=== PATIENT | male | born 1975 | race Caucasian/White ===

== ENCOUNTER 2016-11-25 21:09 | Emergency (ER) | payer OTHER ==
[~2016-11-25] VITALS: Ht 175.2 cm; Wt 90.7 kg
== END 2016-11-25 23:10 | disposition home or self-care (01) ==
LOC: ED 21:09
DX: S61.412A Laceration without foreign body of left hand, initial encounter (principal); F17.200 Nicotine dependence, unspecified, uncomplicated; W29.8XXA Contact with other powered hand tools and household machinery, initial encounter; Y93.89 Activity, other specified; Y92.009 Unspecified place in unspecified non-institutional (private) residence as the place of occurrence of the external cause; Y99.9 Unspecified external cause status

== ENCOUNTER 2016-12-05 12:39 | Emergency (ER) | payer OTHER ==
[~2016-12-05] VITALS: Wt 90.7 kg
== END 2016-12-05 13:03 | disposition home or self-care (01) ==
LOC: ED 12:39
DX: Z48.02 Encounter for removal of sutures (principal); I10 Essential (primary) hypertension

== ENCOUNTER 2016-12-07 12:46 | Emergency (ER) | payer OTHER ==
[~2016-12-07] VITALS: Ht 172.7 cm; Wt 88.5 kg
== END 2016-12-07 13:30 | disposition home or self-care (01) ==
LOC: ED 12:46
DX: T81.30XA Disruption of wound, unspecified, initial encounter (principal); F17.200 Nicotine dependence, unspecified, uncomplicated; Y92.9 Unspecified place or not applicable

== ENCOUNTER 2018-07-22 19:39 | Emergency (ER) | payer OTHER ==
[~2018-07-22] VITALS: Ht 172.7 cm; Wt 86.2 kg
[2018-07-22] MEDS ORDERED: CLINDAMYCIN HC300 MG PO (20:08)
[2018-07-30] MEDS ORDERED: NITROSTAT0.4 MG SL (13:22)
== END 2018-07-22 20:18 | disposition home or self-care (01) ==
LOC: ED 19:39
DX: S91.332A Puncture wound without foreign body, left foot, initial encounter (principal); L03.032 Cellulitis of left toe; W45.0XXA Nail entering through skin, initial encounter; Y93.89 Activity, other specified; Y92.89 Other specified places as the place of occurrence of the external cause; Y99.8 Other external cause status

== ENCOUNTER 2018-07-24 22:55 | Emergency (ER) | payer OTHER ==
[~2018-07-24] VITALS: Ht 172.7 cm; Wt 86.2 kg
[~2018-07-24 22:55] MED LIST: CLINDAMYCIN HC300 MG PO
[2018-07-24] MEDS ORDERED: EFFEXOR XR150 M1 PO (23:07)
[2018-07-24] MEDS ORDERED: IBUPROFEN600 MG PO (23:55)
[2018-07-24] MEDS ORDERED: CIPRO500 MG PO (23:55)
[2018-07-30] MEDS ORDERED: NITROSTAT0.4 MG SL (13:22)
== END 2018-07-25 00:22 | disposition home or self-care (01) ==
LOC: ED 22:55
DX: S91.332A Puncture wound without foreign body, left foot, initial encounter (principal); L02.612 Cutaneous abscess of left foot; Z79.2 Long term (current) use of antibiotics; Z79.899 Other long term (current) drug therapy; W22.8XXA Striking against or struck by other objects, initial encounter; Y93.89 Activity, other specified; Y92.89 Other specified places as the place of occurrence of the external cause; Y99.8 Other external cause status

== ENCOUNTER → 2018-07-30 | Outpatient (CLI) | payer OTHER ==
[~2018-07-30] MED LIST changes: +CIPRO500 MG PO; +EFFEXOR XR150 M1 PO; +IBUPROFEN600 MG PO; +NITROSTAT0.4 MG SL
== END | disposition home or self-care (01) ==
LOC: WOUNDCARE 13:27
DX: T81.89XA Other complications of procedures, not elsewhere classified, initial encounter (principal); L02.612 Cutaneous abscess of left foot; F17.200 Nicotine dependence, unspecified, uncomplicated; Y83.8 Other surgical procedures as the cause of abnormal reaction of the patient, or of later complication, without mention of misadventure at the time of the procedure; Y92.89 Other specified places as the place of occurrence of the external cause

== ENCOUNTER 2020-10-03 15:49 | Emergency (ER) | payer OTHER ==
[~2020-10-03] VITALS: Ht 172.7 cm
[2020-10-03] MEDS ORDERED: PREDNISONE50 MG PO (17:58)
== END 2020-10-03 17:56 | disposition home or self-care (01) ==
LOC: ED 15:49
DX: T63.441A Toxic effect of venom of bees, accidental (unintentional), initial encounter (principal); F17.200 Nicotine dependence, unspecified, uncomplicated; Z79.899 Other long term (current) drug therapy; Y92.89 Other specified places as the place of occurrence of the external cause

== ENCOUNTER 2021-05-15 11:52 | Emergency (ER) | payer OTHER ==
[~2021-05-15] VITALS: Ht 172.7 cm; Wt 86.2 kg
[~2021-05-15 11:52] MED LIST changes: +PREDNISONE50 MG PO
[2021-05-15] MEDS ORDERED: CYCLOBENZAPRINE5 M3 PO (14:59)
[2021-05-15] MEDS ORDERED: Motrin,Rufen800 MG PO (14:59)
[2021-05-15] MEDS ORDERED: MEDROL DOSEPAK4 MG PO (14:59)
== END 2021-05-15 15:03 | disposition home or self-care (01) ==
LOC: ED 11:52
DX: M54.12 Radiculopathy, cervical region (principal); M25.511 Pain in right shoulder; Z79.899 Other long term (current) drug therapy

== ENCOUNTER → 2021-06-08 | Outpatient (CLI) | payer OTHER ==
[~2021-06-08] MED LIST changes: +CYCLOBENZAPRINE5 M3 PO; +MEDROL DOSEPAK4 MG PO; +Motrin,Rufen800 MG PO
== END | disposition home or self-care (01) ==
LOC: MRI 13:00
PROVIDERS: ATTEND Family Medicine
DX: M47.22 Other spondylosis with radiculopathy, cervical region (principal); M48.02 Spinal stenosis, cervical region; M50.10 Cervical disc disorder with radiculopathy, unspecified cervical region

== ENCOUNTER 2022-12-05 22:44 | Emergency (ER) | payer OTHER ==
[~2022-12-05] VITALS: Ht 172.7 cm; Wt 86.2 kg
== END 2022-12-06 01:20 | disposition home or self-care (01) ==
LOC: ED 22:44
DX: T78.49XA Other allergy, initial encounter (principal); L53.9 Erythematous condition, unspecified; R00.0 Tachycardia, unspecified; Z79.899 Other long term (current) drug therapy; X58.XXXA Exposure to other specified factors, initial encounter

== ENCOUNTER → 2023-10-10 | Outpatient (CLI) | payer OTHER ==
[~2023-10-10] MED LIST changes: +GADOTERATE MEGLUMINE 10 MMOL/20 ML VIAL IV ONE
== END | disposition home or self-care (01) ==
LOC: MRI 13:54
PROVIDERS: ATTEND Family Medicine
DX: M47.812 Spondylosis without myelopathy or radiculopathy, cervical region (principal); M48.02 Spinal stenosis, cervical region; M25.78 Osteophyte, vertebrae; M50.322 Other cervical disc degeneration at C5-C6 level; M50.223 Other cervical disc displacement at C6-C7 level

== ENCOUNTER → 2024-04-16 | Outpatient (CLI) | payer OTHER ==
[~2024-04-16] MED LIST changes: -GADOTERATE MEGLUMINE 10 MMOL/20 ML VIAL IV ONE
[2024-04-21 09:06] LABS: COTININE 1.7 ng/mL (.); NICOTINE <1.0 ng/mL (.)
== END | disposition home or self-care (01) ==
LOC: LAB 12:37
PROVIDERS: ATTEND Physician Assistant Surgical
DX: Z01.818 Encounter for other preprocedural examination (principal); M50.123 Cervical disc disorder at C6-C7 level with radiculopathy; M50.122 Cervical disc disorder at C5-C6 level with radiculopathy

== ENCOUNTER 2024-05-24 14:54 | Emergency (ER) | payer OTHER ==
[~2024-05-24] VITALS: Ht 172.7 cm; Wt 86.2 kg
[2024-05-24] MEDS ORDERED: LISINOPRIL20 MG PO (15:47)
[2024-05-24] MEDS ORDERED: HYDROCHLOROTHIA25 M1 PO (15:48)
[2024-05-24] MEDS ORDERED: ROSUVASTATIN CA20 MG PO (15:49)
[2024-05-24] MEDS ORDERED: VITAMIN D31250 MC1 PO (15:49)
[2024-05-24] MEDS ORDERED: PREGABALIN300 MG PO (15:50)
[2024-05-24] MEDS ORDERED: SODIUM CHLORIDE 0.9% 1,000 ML IV ONE (17:40)
[2024-05-24 18:02] LABS: BASO % 0.3 % (0.0-1.0); EOS # 0.3 10*3/uL (0.0-0.4); EOS % 1.9 % (1.0-4.0); HEMATOCRIT 39.1 % (42.0-52.0); MEAN CELL VOLUME 90.3 fl (80.0-94.0); MEAN CORPUSCULAR HGB 29.8 pg (27.0-31.0); MEAN PLATELET VOLUME 9.2 fl (9.6-12.3); MONO # 1.4 10*3/uL (0.1-1.0); MONO % 10.6 % (3.0-9.0); NEUT # 8.4 10*3/uL (2.3-7.9); NEUT % 63.1 % (47.0-73.0); PLATELET COUNT AUTOMATED 406 10*3/uL (130-400); RED BLOOD COUNT 4.33 10*6/uL (4.50-5.90); RED CELL DISTRI WIDTH 13.1 % (0-14.5); WHITE BLOOD COUNT 13.4 10*3/uL (4.8-10.8)
[2024-05-24 18:12] LABS: ACT PARTIAL THROMBO TIME 25.4 SECONDS (20.0-32.1)
[2024-05-24 18:30] LABS: POTASSIUM 5.1 mmol/L (3.4-5.1); TOTAL PROTEIN 7.5 gm/dL (6.0-8.0)
== END 2024-05-24 19:14 | disposition home or self-care (01) ==
LOC: ED 14:54
PROVIDERS: Internal Medicine
DX: I95.2 Hypotension due to drugs (principal); T50.2X5A Adverse effect of carbonic-anhydrase inhibitors, benzothiadiazides and other diuretics, initial encounter; I12.9 Hypertensive chronic kidney disease with stage 1 through stage 4 chronic kidney disease, or unspecified chronic kidney disease; N18.9 Chronic kidney disease, unspecified; Z91.030 Bee allergy status; Z79.899 Other long term (current) drug therapy; Y92.89 Other specified places as the place of occurrence of the external cause